=== PATIENT | female | born 1955 | race Caucasian/White ===

== ENCOUNTER → 2017-06-03 | Outpatient (CLI) | payer OTHER ==
[~2017-06-03] MED LIST: CALC1TAB55 PO; ESTR42.5V VAGINAL; IBUP800T23 PO; VITA10004 PO; VITA200012 PO
[2017-06-03 09:01] LABS: HDL CHOLESTEROL 62.4 MG/DL (40.0-60.0)
== END ==
LOC: CLAB 07:51
PROVIDERS: ATTEND Family Medicine
DX: M54.17 Radiculopathy, lumbosacral region (principal); R53.82 Chronic fatigue, unspecified; M19.90 Unspecified osteoarthritis, unspecified site; E66.3 Overweight; Z68.28 Body mass index [BMI] 28.0-28.9, adult
CPT/HCPCS: 36415; 80061

== ENCOUNTER → 2017-09-07 | Outpatient (CLI) | payer OTHER ==
[2017-09-07 09:16] LABS: AUTOMATED NEUTROPHIL # 3.4 TH/MM3 (1.8-7.7); BASOPHIL % 0.6 % (0.0-2.0); EOSINOPHIL # 0.1 TH/MM3 (0-0.4); EOSINOPHIL % 1.5 % (0.0-4.0); HEMO FLAGS DIFF FINAL; LYMPHOCYTE # 1.9 TH/MM3 (1.0-4.8); MEAN CELL VOLUME 87.2 FL (80.0-100.0); MEAN CORPUSCULAR HEMOGLOBIN 28.6 PG (27.0-34.0); MEAN CORPUSCULAR HGB CONC 32.8 % (32.0-36.0); MONO % 8.1 % (0.0-8.0); NEUT % 57.8 % (16.0-70.0); PLATELET COUNT 241 TH/MM3 (150-450); RED BLOOD COUNT 4.47 MIL/MM3 (4.00-5.30); RED CELL DISTRIBUTION WIDTH 14.3 % (11.6-17.2); WHITE BLOOD COUNT 5.9 TH/MM3 (4.0-11.0)
[2017-09-07 09:33] LABS: ANION GAP 6 MEQ/L (5-15); AST (GOT) 25 U/L (15-37); BICARBONATE 24.8 MEQ/L (21.0-32.0); BLOOD UREA NITROGEN 20 MG/DL (7-18); CHLORIDE 110 MEQ/L (98-107); GLUCOSE,FASTING 86 MG/DL (74-99); POTASSIUM 4.2 MEQ/L (3.5-5.1); SODIUM (NA) 141 MEQ/L (136-145)
[2017-09-07 09:40] LABS: ALKALINE PHOSPHATASE 92 U/L (45-117); ALT (GPT) 33 U/L (10-53); GLOMERULAR FILTRATION RATE 100 ML/MIN (>89); TOTAL BILIRUBIN ADULT 0.7 MG/DL (0.2-1.0)
== END ==
LOC: CLAB 08:42
PROVIDERS: ATTEND Family Medicine
DX: M54.17 Radiculopathy, lumbosacral region (principal); R73.02 Impaired glucose tolerance (oral); R53.82 Chronic fatigue, unspecified; R39.81 Functional urinary incontinence; M19.90 Unspecified osteoarthritis, unspecified site; Z68.26 Body mass index [BMI] 26.0-26.9, adult
CPT/HCPCS: 36415; 80053; 85025